=== PATIENT | male | born 1970 | race Caucasian/White ===

== ENCOUNTER 2017-03-22 12:07 | Emergency (ER) | payer OTHER | END 2017-03-22 12:39 | disposition home or self-care (01) | LOC: ER1 12:07 | DX: H10.9 Unspecified conjunctivitis (principal); F17.210 Nicotine dependence, cigarettes, uncomplicated; Z23 Encounter for immunization | CPT/HCPCS: 90471; 90714; 99283 ==

== ENCOUNTER 2021-12-24 16:47 | Emergency (ER) | payer OTHER ==
[~2021-12-24 16:47] MED LIST: KEFLEX CAP 500500 MG PO; KEFLEX250 MG PO; PERCOCET 5/325 T1 EA PO; ZOFRAN4 MG PO
[2021-12-24] MEDS ORDERED: IBUPROFEN600 MG PO (20:45)
== END 2021-12-24 20:50 | disposition home or self-care (01) ==
LOC: ER1 16:47
DX: S01.81XA Laceration without foreign body of other part of head, initial encounter (principal); S00.03XA Contusion of scalp, initial encounter; W19.XXXA Unspecified fall, initial encounter
CPT/HCPCS: 12013; 70450; 70486; 72125; 99283